=== PATIENT | male | born 2000 | race Caucasian/White ===

== ENCOUNTER 2022-03-21 11:56 | Emergency (ER) | payer MEDICAID ==
[2022-03-21] MEDS: Sodium Chloride 0.9% 1,000 ML IV ONE (12:38)
[2022-03-21] MEDS: Ondansetron 4 MG/2 ML SDV IVPUSH ONE (12:38)
[2022-03-21 13:07] LABS: BLOOD UREA NITROGEN,BUN 12 mg/dL (7.0-18.0); CARBON DIOXIDE,CO2 25.2 mmol/L (21.0-32.0); CHLORIDE,CL 105 mmol/L (98-107); GLUCOSE RANDOM 113 mg/dL (74-106); LIPASE 94 U/L (73-393); POTASSIUM,K 3.6 mmol/L (3.5-5.1); SODIUM,NA 140 mmol/L (136-148)
[2022-03-21 13:09] LABS: ESTIMATED GFR 108 mL/min (>60)
[2022-03-21 13:21] LABS: CORONAVIRUS COVID-19 NAA NEGATIVE (NEGATIVE); INFLUENZA A NAA NEGATIVE (NEGATIVE); INFLUENZA B NAA NEGATIVE (NEGATIVE)
== END 2022-03-21 14:09 | disposition home or self-care (01) ==
LOC: MW.ED 11:56
DX: R11.2 Nausea with vomiting, unspecified (principal); Z20.822 Contact with and (suspected) exposure to COVID-19
CPT/HCPCS: 0240U; 36415; 80053; 83690; 85025; 96361; 96374; 99284; J2405; J7030

== ENCOUNTER 2023-03-04 21:18 | Emergency (ER) | payer MEDICAID ==
[2023-03-04] MEDS ORDERED: Ciprofloxacin 500 MG Tab PO ONE (21:49)
[2023-03-04] MEDS ORDERED: Bacitracin Oint 1 GM U/D Packet TOP ONE (21:49)
== END 2023-03-04 22:02 | disposition home or self-care (01) ==
LOC: MW.ED 21:18
DX: L08.9 Local infection of the skin and subcutaneous tissue, unspecified (principal)
CPT/HCPCS: 99283; A9270

== ENCOUNTER 2024-10-17 19:57 | Emergency (ER) | payer OTHER ==
[2024-10-17 23:02] LABS: BASOPHILS ABSOLUTE AUTO 0.02 K/uL (0.00-0.20); BASOPHILS PERCENT AUTO 0.2 % (0.0-1.0); EOSINOPHILS ABSOLUTE AUTO 0.13 K/uL (0.00-0.45); EOSINOPHILS PERCENT AUTO 1.1 % (0.0-6.0); HEMATOCRIT 44.1 % (42.0-52.0); HEMOGLOBIN 14.8 g/dL (14.0-18.0); IMMATURE GRAN ABSOLUTE AUTO 0.03 K/uL (0.00-0.05); IMMATURE GRAN PERCENT AUTO 0.2 % (0.0-0.4); LYMPHOCYTES ABSOLUTE AUTO 4.07 K/uL (1.00-4.80); LYMPHOCYTES PERCENT AUTO 33.8 % (24.0-44.0); MEAN CORPUSCULAR HEMOGLOBIN 29.7 pg (28.0-32.0); MEAN CORPUSCULAR HGB CONC 33.6 g/dL (32.0-36.0); MEAN CORPUSCULAR VOLUME 88.4 fL (83.0-99.0); MEAN PLATELET VOLUME 10.1 fL (9.4-12.4); MONOCYTES ABSOLUTE AUTO 0.77 K/uL (0.00-0.80); MONOCYTES PERCENT AUTO 6.4 % (0.0-8.0); NEUTROPHILS ABSOLUTE AUTO 7.02 K/uL (1.80-7.70); NEUTROPHILS PERCENT AUTO 58.3 % (41.0-71.0); PLATELET COUNT,PLT 212 K/uL (150-400); RED BLOOD CELL COUNT 4.99 M/uL (4.52-5.90); WHITE BLOOD CELL COUNT,WBC 12.04 K/uL (3.9-11.3)
[2024-10-17 23:28] LABS: A/G RATIO 1.1 (0.9-1.6); ALBUMIN 3.9 g/dL (3.4-5.0); BILIRUBIN TOTAL 0.6 mg/dL (0.2-1.0); CALCIUM 9.1 mg/dL (8.5-10.1); CARBON DIOXIDE,CO2 28.8 mmol/L (21.0-32.0); EST CRCL DRUG DOSING (CG) 138.64 mL/min; POTASSIUM,K 4.1 mmol/L (3.5-5.1); PROTEIN TOTAL,TP 7.5 g/dL (6.4-8.2)
[2024-10-18 00:48] LABS: APPEARANCE,URINE CLEAR; BILIRUBIN,URINE NEGATIVE (NEGATIVE); COLOR,URINE YELLOW; GLUCOSE,URINE NEGATIVE (NEGATIVE); KETONES,URINE NEGATIVE (NEGATIVE); LEUKOCYTE ESTERASE,URINE NEGATIVE (NEGATIVE); NITRITE,URINE NEGATIVE (NEGATIVE); OCCULT BLOOD,URINE NEGATIVE (NEGATIVE); PROTEIN,URINE NEGATIVE (NEGATIVE)
[2024-10-18] MEDS ORDERED: Sodium Chloride 0.9% 10 ML Syringe FLUSH PRN (01:22)
[2024-10-18] MEDS ORDERED: Sodium Chloride 0.9% 2.5 ML Syringe FLUSH PRN (01:22)
[2024-10-18] MEDS: Sodium Chloride 0.9% 1,000 ML IV ONE (01:37)
[2024-10-18] MEDS: Morphine 4 MG/ML Syringe IVPUSH ONE (01:37)
[2024-10-18] MEDS: Iopamidol 755 MG/ML 500 ML Multipack Bottle IVPUSH ONE (01:52)
[2024-10-18] MEDS: Lidocaine 1% with EPINEPHrine 1:200,000 30 ML SDV INJECT ONE (04:22)
[2024-10-18] MEDS: cefTRIAXone 1 GM in Sodium Chloride 0.9% 50 ML IV ONE (04:24)
[2024-10-18] MEDS: Doxycycline 100 MG Cap PO ONE (04:24)
== END 2024-10-18 05:31 | disposition home or self-care (01) ==
LOC: MW.ED 19:57
DX: L02.211 Cutaneous abscess of abdominal wall (principal); F17.210 Nicotine dependence, cigarettes, uncomplicated; Z79.899 Other long term (current) drug therapy
CPT/HCPCS: 36415; 74177; 80053; 81003; 83690; 85025; 87070; 87205; 93005; 96361; 96365; 96375; 99284; A9270; J0696; J2270; J3490; J7030; Q9967; 10060; 93010; 99283

== ENCOUNTER 2025-02-12 03:08 | Day surgery (SDC) | payer SELFPAY ==
[2025-02-12] MEDS ORDERED: Sodium Chloride 0.9% 10 ML Syringe FLUSH PRN (03:30)
[2025-02-12] MEDS ORDERED: Sodium Chloride 0.9% 2.5 ML Syringe FLUSH PRN (03:30)
[2025-02-12 03:35] LABS: HEMATOCRIT 46.2 % (42.0-52.0); HEMOGLOBIN 16.1 g/dL (14.0-18.0); MEAN CORPUSCULAR HEMOGLOBIN 29.7 pg (28.0-32.0); MEAN CORPUSCULAR HGB CONC 34.8 g/dL (32.0-36.0); MEAN CORPUSCULAR VOLUME 85.1 fL (83.0-99.0); MEAN PLATELET VOLUME 10.1 fL (9.4-12.4); PLATELET COUNT,PLT 267 K/uL (150-400); RED BLOOD CELL COUNT 5.43 M/uL (4.52-5.90); WHITE BLOOD CELL COUNT,WBC 16.93 K/uL (3.9-11.3)
[2025-02-12] MEDS: Sodium Chloride 0.9% 1,000 ML IV SCH ×2 (03:36→04:56)
[2025-02-12] MEDS: droPERidol 2.5 MG/ML SDV IVPUSH ONE (03:36)
[2025-02-12] MEDS: Ketorolac 30 MG/ML SDV IVPUSH ONE (03:36)
[2025-02-12 03:50] LABS: A/G RATIO 1.2 (0.9-1.6); ALBUMIN 4.1 g/dL (3.4-5.0); BILIRUBIN TOTAL 0.4 mg/dL (0.2-1.0); CARBON DIOXIDE,CO2 24.2 mmol/L (21.0-32.0); CREATININE 1.2 mg/dL (0.8-1.3); EST CRCL DRUG DOSING (CG) 106.35 mL/min; POTASSIUM,K 3.3 mmol/L (3.5-5.1); PROTEIN TOTAL,TP 7.5 g/dL (6.4-8.2)
[2025-02-12 03:59] LABS: BAND ABSOLUTE MAN 0.17; BAND PERCENT MAN 1 %; LYMPHOCYTES ABSOLUTE MAN 5.59 K/uL (1.00-4.80); LYMPHOCYTES PERCENT MAN 33 % (24-44); MONOCYTES ABSOLUTE MAN 1.02 K/uL (0.00-0.80); MONOCYTES PERCENT MAN 6 % (0-8); SEG NEUTROPHILS ABSOLUTE MAN 10.16 K/uL (1.80-7.70); SEG NEUTROPHILS PERCENT MAN 60 % (41-71)
[2025-02-12 04:16] LABS: BILIRUBIN,URINE NEGATIVE (NEGATIVE); COLOR,URINE YELLOW; GLUCOSE,URINE NEGATIVE (NEGATIVE); KETONES,URINE 15 mg/dL (NEGATIVE); LEUKOCYTE ESTERASE,URINE NEGATIVE (NEGATIVE); NITRITE,URINE NEGATIVE (NEGATIVE); OCCULT BLOOD,URINE NEGATIVE (NEGATIVE); PROTEIN,URINE TRACE mg/dL (NEGATIVE)
[2025-02-12] MEDS ORDERED: Morphine 4 MG/ML Syringe IVPUSH PRN (04:22)
[2025-02-12 04:23] LABS: APPEARANCE,URINE HAZY; BACTERIA,URINE FEW (NEGATIVE); EPITHELIAL CELLS,URINE NOT SEEN (NONE-FEW); RBC,URINE 0-1 (0-2/HPF); WBC,URINE 0-3 (0-5/HPF)
[2025-02-12] MEDS: Ertapenem 1 GM in Sodium Chloride 0.9% 50 ML IV ONE (04:28)
[2025-02-12] MEDS: fentaNYL 50 MCG/ML SDV IVPUSH ONE (08:07)
[2025-02-12] MEDS: Ondansetron 4 MG/2 ML SDV IVPUSH PRN (09:59)
[2025-02-12] MEDS ORDERED: Ondansetron 4 MG/2 ML SDV ONE ×2 (10:42→13:21)
[2025-02-12] MEDS ORDERED: fentaNYL 100 MCG/2 ML SDV ONE (10:42)
[2025-02-12] MEDS ORDERED: Metoclopramide 10 MG/2 ML SDV ONE (10:46)
[2025-02-12] MEDS ORDERED: Naloxone 0.4 MG/ML SDV IVPUSH PRN ×2 (12:49→15:14)
[2025-02-12] MEDS ORDERED: Morphine 2 MG/ML SYRINGE IVPUSH PRN (12:49)
[2025-02-12] MEDS ORDERED: Metoclopramide 10 MG/2 ML SDV IVPUSH PRN (12:49)
[2025-02-12] MEDS ORDERED: Albuterol 0.083% 2.5 MG/3 ML Neb Soln NEB PRN (12:49)
[2025-02-12] MEDS ORDERED: Ondansetron 4 MG/2 ML SDV IVPUSH PRN ×2 (12:49→15:14)
[2025-02-12] MEDS ORDERED: HYDROmorphone 1 MG/ML Syringe IVPUSH PRN ×2 (12:49→15:14)
[2025-02-12] MEDS ORDERED: fentaNYL 50 MCG/ML SDV IVPUSH PRN (12:49)
[2025-02-12] MEDS ORDERED: Phenylephrine HCl In 0.9% NaCl 1 MG/10 ML Syringe IVPUSH PRN (12:49)
[2025-02-12] MEDS ORDERED: Bupivacaine 0.5% 30 ML SDV ONE (13:12)
[2025-02-12] MEDS ORDERED: Propofol 200 MG/20 ML SDV ONE (13:15)
[2025-02-12] MEDS ORDERED: fentaNYL 250 MCG/5 ML SDV ONE ×2 (13:16→14:04)
[2025-02-12] MEDS ORDERED: Morphine 10 MG/ML SDV ONE (13:19)
[2025-02-12] MEDS ORDERED: Sodium Chloride 0.9% 20 ML ONE ×2 (13:19→13:20)
[2025-02-12] MEDS ORDERED: Famotidine 20 MG/2 ML SDV ONE (13:19)
[2025-02-12] MEDS ORDERED: Ropivacaine 0.5% 5 MG/ML 30 ML SDV ONE (13:19)
[2025-02-12] MEDS ORDERED: dexmedeTOMIDine HCl 200 MCG/2 ML SDV ONE (13:20)
[2025-02-12] MEDS ORDERED: Ketorolac 30 MG/ML SDV ONE (13:21)
[2025-02-12] MEDS ORDERED: Sugammadex Sodium 200 MG/2 ML VIAL IV ONE (13:21)
[2025-02-12] MEDS ORDERED: Dexamethasone 4 MG/ML 5 ML MDV ONE (13:21)
[2025-02-12] MEDS ORDERED: Lidocaine 2% 11 ML Jelly Filled Syringe ONE (13:38)
[2025-02-12] MEDS ORDERED: Ketamine HCL/NACL, ISO-OSM 50 MG/5 ML Syringe ONE (13:51)
[2025-02-12] MEDS ORDERED: Rocuronium Bromide 50 MG/5 ML Syringe ONE (14:18)
[2025-02-12] MEDS ORDERED: Acetaminophen/HYDROcodone 325-5 MG Tab PO PRN (15:14)
[2025-02-12] MEDS ORDERED: Acetaminophen 325 MG Tab PO PRN (15:14)
[2025-02-12] MEDS ORDERED: Ertapenem 1 GM in Sodium Chloride 0.9% 50 ML IV SCH (15:15)
[2025-02-12] MEDS ORDERED: Sodium Chloride 0.9% 1,000 ML IV SCH (15:15)
== END 2025-02-12 19:31 | disposition home or self-care (01) ==
LOC: MW.ED 03:08 → MW.SDS 08:43 → MW.MS 16:21 → MW.SDS 19:31
PROVIDERS: ATTEND Internal Medicine
DX: K35.30 Acute appendicitis with localized peritonitis, without perforation or gangrene (principal); F17.210 Nicotine dependence, cigarettes, uncomplicated
CPT/HCPCS: 00840; 36415; 64488; 74176; 74176-26; 80053; 81001; 83690; 85025; 96361; 96365; 96375; 99284; 99285-25; A9270-GY; J0665; J1100; J1335; J1790; J1885; J2272; J2405; J2704; J2765; J2795; J3010; J3490; J7030